=== PATIENT | female | born 1960 | race Caucasian/White ===

== ENCOUNTER 2020-05-21 18:17 | Inpatient (IN) | payer MEDICAID ==
[~2020-05-21] VITALS: Ht 167.6 cm; Wt 127.1 kg
[2020-05-21 20:07] VITALS: BP 125/74
[2020-05-21] MEDS: ENOXAPARIN 40 MG/0.4 ML SQ SCH (22:30)
[2020-05-21] MEDS ORDERED: ENALAPRILAT 1.25 MG/ML, 2ML IVPush PRN (22:30)
[2020-05-21] MEDS ORDERED: ACETAMINOPHEN 325 MG TABLET PO PRN (22:30)
[2020-05-21] MEDS ORDERED: MELATONIN 5 MG TABLET PO PRN (22:30)
[2020-05-21] MEDS ORDERED: ONDANSETRON ODT 4 MG PO PRN (22:30)
[2020-05-21] MEDS ORDERED: PLEASE ENTER HEIGHT MC SCH (23:00)
[2020-05-21] MEDS ORDERED: VANCOMYCIN PER PHARMACY MC PRN (23:00)
[2020-05-21] MEDS ORDERED: PLEASE ENTER ALLERGIES MC SCH (23:00)
[2020-05-21] MEDS ORDERED: LYSI100010 PO (23:36)
[2020-05-21] MEDS ORDERED: MONOLAURIN PO (23:37)
[2020-05-21] MEDS ORDERED: PHARMACOKINETIC MONITORING MC PRN (23:45)
[2020-05-22 00:07] VITALS: BP 114/72
[2020-05-22] MEDS ORDERED: VANCOMYCIN 1,250 MG in SODIUM CHLORIDE 0.9% 100 ML IV ONE (02:00)
[2020-05-22 05:32] LABS: BASOPHILS % (AUTO) 0 % (0-1); EOSINOPHILS % (AUTO) 3 % (1-7); LYMPHOCYTES % (AUTO) 21 % (22-44); MEAN CORPUSCULAR HEMOGLOBIN 31.2 pg (27.0-34.8); MEAN CORPUSCULAR HGB CONC 32.7 g/dL (32.4-35.8); MEAN PLATELET VOLUME 8.3 fL (7.4-10.4); MONOCYTES % (AUTO) 9 % (2-9); NEUTROPHILS % (AUTO) 67 % (42-75); PLATELET COUNT 218 x10^3/uL (130-400); RED BLOOD COUNT 3.58 x10^6/uL (3.82-5.3); RED CELL DISTRIBUTION WIDTH 13.6 % (9.6-15.2)
[2020-05-22 05:43] LABS: ANION GAP 5 mmol/L (5-15); CALCIUM 8.7 mg/dL (8.5-10.1); CHLORIDE 107 mmol/L (98-107); CREATININE 0.87 mg/dL (0.55-1.02)
[2020-05-22 05:53] LABS: MD NO
[2020-05-22 07:04] VITALS: BP 99/51
[2020-05-22 12:26] VITALS: BP 106/75
[2020-05-22] MEDS: VANCOMYCIN 1,800 MG in SODIUM CHLORIDE 0.9% 250 ML IV SCH (13:08)
[2020-05-22] MEDS: DOCUSATE 100 MG CAPSULE PO PRN (17:40)
[2020-05-22 19:20] VITALS: BP 118/78
[2020-05-22] MEDS: ENOXAPARIN 40 MG/0.4 ML SQ SCH (22:04)
[2020-05-23 00:02] VITALS: BP 132/82
[2020-05-23] MEDS: VANCOMYCIN 1,800 MG in SODIUM CHLORIDE 0.9% 250 ML IV SCH ×2 (00:36→14:21)
[2020-05-23 06:46] VITALS: BP 115/73
[2020-05-23 12:25] VITALS: BP 126/75
[2020-05-23] MEDS: CLOBETASOL PROPIONATE CRM 0.05%, 15GM TP SCH (13:32)
[2020-05-23] MEDS: CLINDAMYCIN 300 MG CAPSULE PO SCH ×2 (13:33→18:00)
[2020-05-23] MEDS: DOCUSATE 100 MG CAPSULE PO PRN (14:20)
[2020-05-23 20:44] VITALS: BP 128/74
[2020-05-23] MEDS ORDERED: POLYETHYLENE GLYCOL 17 GM PACKET ONE (21:20)
[2020-05-23] MEDS ORDERED: POLYETHYLENE GLYCOL 17 GM PACKET PO PRN (21:30)
[2020-05-23] MEDS: ENOXAPARIN 40 MG/0.4 ML SQ SCH (22:12)
[2020-05-24] MEDS: CLINDAMYCIN 300 MG CAPSULE PO SCH ×4 (00:10→17:49)
[2020-05-24 01:10] VITALS: BP 129/69
[2020-05-24] MEDS: VANCOMYCIN 1,800 MG in SODIUM CHLORIDE 0.9% 250 ML IV SCH ×2 (01:42→12:14)
[2020-05-24 05:46] LABS: CHLORIDE 108 mmol/L (98-107)
[2020-05-24 05:51] LABS: ANION GAP 8 mmol/L (5-15); BASOPHILS % (AUTO) 1 % (0-1); CALCIUM 9.1 mg/dL (8.5-10.1); CREATININE 1.13 mg/dL (0.55-1.02); EOSINOPHILS % (AUTO) 7 % (1-7); LYMPHOCYTES % (AUTO) 22 % (22-44); MEAN CORPUSCULAR HEMOGLOBIN 31.4 pg (27.0-34.8); MEAN PLATELET VOLUME 8.7 fL (7.4-10.4); MONOCYTES % (AUTO) 11 % (2-9); NEUTROPHILS % (AUTO) 59 % (42-75); PLATELET COUNT 238 x10^3/uL (130-400); RED BLOOD COUNT 3.75 x10^6/uL (3.82-5.3); RED CELL DISTRIBUTION WIDTH 13.8 % (9.6-15.2)
[2020-05-24 06:33] LABS: MD NO
[2020-05-24 08:08] VITALS: BP 136/82
[2020-05-24] MEDS: CLOBETASOL PROPIONATE CRM 0.05%, 15GM TP SCH (10:03)
[2020-05-24 12:01] VITALS: BP 138/80
[2020-05-24] MEDS ORDERED: SODIUM CHLORIDE 0.9%, 500ML IVBOLUS ONE (13:00)
[2020-05-24 13:37] LABS: ANION GAP 7 mmol/L (5-15); CALCIUM 9.3 mg/dL (8.5-10.1); CHLORIDE 108 mmol/L (98-107)
[2020-05-24 13:38] LABS: CREATININE 0.93 mg/dL (0.55-1.02)
[2020-05-24] MEDS ORDERED: CLOB15CR19 TP (14:30)
[2020-05-24] MEDS ORDERED: FAMO10TA77 PO (14:30)
[2020-05-24] MEDS ORDERED: CLIN300C8 PO (14:30)
== END 2020-05-24 18:23 | disposition home or self-care (01) | DRG 383 ==
LOC: 4WST 19:29
PROVIDERS: ADMIT Family Medicine; ATTEND Family Medicine
DX: L03.115 Cellulitis of right lower limb (principal); E66.01 Morbid (severe) obesity due to excess calories; G47.33 Obstructive sleep apnea (adult) (pediatric); I83.019 Varicose veins of right lower extremity with ulcer of unspecified site; I83.029 Varicose veins of left lower extremity with ulcer of unspecified site; L97.919 Non-pressure chronic ulcer of unspecified part of right lower leg with unspecified severity; L97.929 Non-pressure chronic ulcer of unspecified part of left lower leg with unspecified severity; Z68.42 Body mass index [BMI] 45.0-49.9, adult; Q73.1 Phocomelia, unspecified limb(s); Z59.0 Homelessness; Z86.14 Personal history of Methicillin resistant Staphylococcus aureus infection; Z90.49 Acquired absence of other specified parts of digestive tract; Z88.5 Allergy status to narcotic agent
CPT/HCPCS: 36415; 80048; 80202; 85025; 93306; G0378; J1650; J3370; Q0162; J7040; J7050

== ENCOUNTER 2020-05-25 10:22 | Emergency (ER) | payer MEDICAID ==
[~2020-05-25] VITALS: Ht 167.6 cm; Wt 123.1 kg
[~2020-05-25 10:22] MED LIST: CLIN300C8 PO; CLOB15CR19 TP; FAMO10TA77 PO; LYSI100010 PO; MONOLAURIN PO
[2020-05-25 10:25] VITALS: BP 169/92
--- NOTE | 2020-05-25 16:14 | NUR ---
Patient given discharge instructions and they have confirmed that they understand the instructions. Patient ambulatory with steady gait.
== END 2020-05-25 16:15 | disposition home or self-care (01) ==
LOC: ED 15:55
DX: A49.02 Methicillin resistant Staphylococcus aureus infection, unspecified site (principal); M79.661 Pain in right lower leg; Z76.0 Encounter for issue of repeat prescription
CPT/HCPCS: 99281

== ENCOUNTER 2020-08-28 00:37 | Inpatient (IN) | payer MEDICAID ==
[~2020-08-28] VITALS: Ht 167.6 cm; Wt 128.5 kg
[~2020-08-28 00:37] MED LIST changes: -CLIN300C8 PO; +CLIN300C9 PO
[2020-08-28 01:25] LABS: BASOPHILS % (AUTO) 1 % (0-1); EOSINOPHILS % (AUTO) 6 % (1-7); LYMPHOCYTES % (AUTO) 19 % (22-44); MEAN CORPUSCULAR HEMOGLOBIN 31.1 pg (27.0-34.8); MEAN CORPUSCULAR HGB CONC 33.2 g/dL (32.4-35.8); MEAN PLATELET VOLUME 8.5 fL (7.4-10.4); MONOCYTES % (AUTO) 11 % (2-9); NEUTROPHILS % (AUTO) 64 % (42-75); PLATELET COUNT 258 x10^3/uL (130-400); RED BLOOD COUNT 3.94 x10^6/uL (3.82-5.3); RED CELL DISTRIBUTION WIDTH 14.1 % (9.6-15.2)
[2020-08-28 01:35] LABS: MD NO
[2020-08-28 01:37] LABS: ANION GAP 5 mmol/L (5-15); CALCIUM 9.2 mg/dL (8.5-10.1); CHLORIDE 108 mmol/L (98-107); CREATININE 1.06 mg/dL (0.55-1.02)
[2020-08-28] MEDS ORDERED: VANCOMYCIN PER PHARMACY MC ONE (03:00)
[2020-08-28] MEDS ORDERED: SODIUM CHLORIDE FLUSH 10ML SYR IVF ONE (03:00)
[2020-08-28] MEDS ORDERED: CEFAZOLIN PMX 1GM/50ML 50 ML IVPB ONE (03:00)
[2020-08-28] MEDS ORDERED: CEFTRIAXONE PMX 1GM/50ML 0 ML ONE (03:07)
[2020-08-28] MEDS ORDERED: CEFAZOLIN PMX 1GM/50ML 50 ML ONE (03:11)
[2020-08-28] MEDS ORDERED: VANCOMYCIN 2,200 MG in SODIUM CHLORIDE 0.9% 500 ML IV ONE (05:00)
[2020-08-28] MEDS ORDERED: PHARMACOKINETIC CONSULTATION MC ONE ×2 (05:00→10:00)
--- NOTE | 2020-08-28 05:06 | NUR ---
Vanco infusing. Pt with stable vs, A&O, warm blanket and bear warmer given for patient comfort. Pt tolerating snack that was provided. Pt with no needs at this time.
[2020-08-28] MEDS ORDERED: ONDANSETRON ODT 4 MG PO PRN (07:00)
[2020-08-28] MEDS ORDERED: VANCOMYCIN PER PHARMACY MC PRN (07:00)
[2020-08-28] MEDS ORDERED: BACLOFEN 10 MG TABLET PO PRN (07:00)
[2020-08-28] MEDS ORDERED: BUTALB/APAP/CAFFEINE 50MG/325MG/40MG PO PRN (07:00)
[2020-08-28] MEDS ORDERED: ONDANSETRON 2MG/ML, 2ML IVPush PRN (07:00)
[2020-08-28] MEDS ORDERED: GUAIFENESIN/DM 200-20MG, 10ML UDC PO PRN (07:00)
--- NOTE | 2020-08-28 07:02 | NUR ---
REPORT OF PT FROM ANDREW PERDUE AND ASSUMING CARE OF PT AT THIS TIME.
--- NOTE | 2020-08-28 07:16 | NUR ---
ATTEMPTED REPORT. PER FLOOR, RN IS STILL GETTTING REPORT AND WILL CALL BACK.
[2020-08-28 08:33] VITALS: BP 137/77
[2020-08-28] MEDS: SENNA/DOCUSATE TABLET PO SCH (09:07)
[2020-08-28] MEDS: ENOXAPARIN 40 MG/0.4 ML SQ SCH (09:07)
[2020-08-28] MEDS ORDERED: PHARMACOKINETIC MONITORING MC PRN (10:00)
[2020-08-28] MEDS: BUTALB/APAP/CAFFEINE 50MG/325MG/40MG PO PRN ×2 (10:50→20:10)
[2020-08-28 10:56] VITALS: BP 145/82
[2020-08-28 12:45] LABS: FREE T4 (FREE THYROXINE) 1.09 ng/dL (0.76-1.46)
[2020-08-28] MEDS: CEFAZOLIN PMX 1GM/50ML 50 ML IV SCH (15:00)
[2020-08-28 19:02] VITALS: BP 127/78
[2020-08-28] MEDS: MELATONIN 5 MG TABLET PO SCH (20:10)
[2020-08-29] MEDS: CEFAZOLIN PMX 1GM/50ML 50 ML IV SCH ×3 (02:54→21:57)
[2020-08-29 02:56] VITALS: BP 109/69
[2020-08-29] MEDS: BUTALB/APAP/CAFFEINE 50MG/325MG/40MG PO PRN (02:56)
[2020-08-29] MEDS: VANCOMYCIN 1,700 MG in SODIUM CHLORIDE 0.9% 250 ML IV SCH (05:32)
[2020-08-29] MEDS: ENOXAPARIN 40 MG/0.4 ML SQ SCH (06:43)
[2020-08-29 06:50] LABS: BASOPHILS % (AUTO) 1 % (0-1); EOSINOPHILS % (AUTO) 2 % (1-7); LYMPHOCYTES % (AUTO) 20 % (22-44); MEAN CORPUSCULAR HGB CONC 33.5 g/dL (32.4-35.8); MEAN PLATELET VOLUME 8.4 fL (7.4-10.4); MONOCYTES % (AUTO) 12 % (2-9); NEUTROPHILS % (AUTO) 66 % (42-75); PLATELET COUNT 213 x10^3/uL (130-400); RED CELL DISTRIBUTION WIDTH 14.4 % (9.6-15.2)
[2020-08-29 06:55] LABS: MD NO
[2020-08-29 07:04] LABS: ANION GAP 6 mmol/L (5-15); CALCIUM 8.7 mg/dL (8.5-10.1); CHLORIDE 110 mmol/L (98-107)
[2020-08-29 07:05] LABS: CREATININE 0.95 mg/dL (0.55-1.02)
[2020-08-29 08:55] VITALS: BP 93/57
[2020-08-29] MEDS: SENNA/DOCUSATE TABLET PO SCH (09:00)
[2020-08-29] MEDS: THYROID 30 MG TABLET PO SCH (10:00)
[2020-08-29 14:09] VITALS: BP 120/69
[2020-08-29] MEDS ORDERED: MUPIROCIN OINT 2%, 1 GM APPL. TP SCH (16:00)
[2020-08-29] MEDS: MUPIROCIN OINT 2%, 22GM TP SCH ×2 (17:47→20:17)
[2020-08-29 19:33] VITALS: BP 108/62
[2020-08-29] MEDS: MELATONIN 5 MG TABLET PO SCH (20:17)
[2020-08-30 00:30] VITALS: BP 126/66
[2020-08-30] MEDS: VANCOMYCIN 1,700 MG in SODIUM CHLORIDE 0.9% 250 ML IV SCH (05:13)
[2020-08-30] MEDS: THYROID 30 MG TABLET PO SCH (05:23)
[2020-08-30 06:52] VITALS: BP 111/63
[2020-08-30] MEDS: CEFAZOLIN PMX 1GM/50ML 50 ML IV SCH ×3 (07:09→23:16)
[2020-08-30] MEDS: ENOXAPARIN 40 MG/0.4 ML SQ SCH (08:05)
[2020-08-30] MEDS: BUTALB/APAP/CAFFEINE 50MG/325MG/40MG PO PRN (08:10)
[2020-08-30] MEDS: SENNA/DOCUSATE TABLET PO SCH (08:11)
[2020-08-30] MEDS: MUPIROCIN OINT 2%, 22GM TP SCH ×3 (08:47→20:11)
[2020-08-30] MEDS: FUROSEMIDE 20 MG TABLET PO SCH (08:55)
[2020-08-30 13:09] VITALS: BP 104/65
[2020-08-30] MEDS ORDERED: VANCOMYCIN 1,800 MG in SODIUM CHLORIDE 0.9% 250 ML IV ONE (17:00)
[2020-08-30 19:24] VITALS: BP 125/81
[2020-08-30] MEDS: MELATONIN 5 MG TABLET PO SCH (20:11)
[2020-08-31 01:24] VITALS: BP 111/71
[2020-08-31] MEDS: THYROID 30 MG TABLET PO SCH (05:51)
[2020-08-31 06:44] VITALS: BP 123/60
[2020-08-31 06:57] LABS: ANION GAP 6 mmol/L (5-15); CALCIUM 8.9 mg/dL (8.5-10.1); CHLORIDE 107 mmol/L (98-107); CREATININE 0.97 mg/dL (0.55-1.02)
[2020-08-31] MEDS: ENOXAPARIN 40 MG/0.4 ML SQ SCH (07:00)
[2020-08-31] MEDS: CEFAZOLIN PMX 1GM/50ML 50 ML IV SCH ×3 (07:14→22:46)
[2020-08-31] MEDS ORDERED: POLYETHYLENE GLYCOL 17 GM PACKET PO PRN (08:00)
[2020-08-31] MEDS: MUPIROCIN OINT 2%, 22GM TP SCH ×3 (09:43→20:48)
[2020-08-31] MEDS: SENNA/DOCUSATE TABLET PO SCH (09:43)
[2020-08-31] MEDS: FUROSEMIDE 20 MG TABLET PO SCH (09:43)
[2020-08-31] MEDS: VANCOMYCIN 1,800 MG in SODIUM CHLORIDE 0.9% 250 ML IV SCH (11:06)
[2020-08-31 12:06] VITALS: BP 123/79
[2020-08-31 19:00] VITALS: BP 109/69
[2020-08-31] MEDS: MELATONIN 5 MG TABLET PO SCH (20:47)
[2020-09-01 01:15] VITALS: BP 121/79
[2020-09-01 05:15] LABS: ANION GAP 6 mmol/L (5-15); CALCIUM 9.2 mg/dL (8.5-10.1); CHLORIDE 104 mmol/L (98-107)
[2020-09-01 05:17] LABS: CREATININE 0.95 mg/dL (0.55-1.02)
[2020-09-01] MEDS: VANCOMYCIN 1,800 MG in SODIUM CHLORIDE 0.9% 250 ML IV SCH ×2 (05:48→23:04)
[2020-09-01] MEDS: THYROID 30 MG TABLET PO SCH (05:50)
[2020-09-01] MEDS: ENOXAPARIN 40 MG/0.4 ML SQ SCH (07:00)
[2020-09-01 07:01] VITALS: BP 112/72
[2020-09-01] MEDS: SENNA/DOCUSATE TABLET PO SCH ×2 (07:47→07:53)
[2020-09-01] MEDS: CEFAZOLIN PMX 1GM/50ML 50 ML IV SCH ×2 (07:47→16:05)
[2020-09-01] MEDS: MUPIROCIN OINT 2%, 22GM TP SCH ×3 (07:48→20:49)
[2020-09-01] MEDS: FUROSEMIDE 20 MG TABLET PO SCH (07:48)
[2020-09-01] MEDS ORDERED: LINE600T15 PO (10:42)
[2020-09-01] MEDS: BUTALB/APAP/CAFFEINE 50MG/325MG/40MG PO PRN (11:31)
[2020-09-01 12:31] VITALS: BP 123/68
[2020-09-01 19:55] VITALS: BP 107/69
[2020-09-01] MEDS: MELATONIN 5 MG TABLET PO SCH (20:36)
[2020-09-02] MEDS: CEFAZOLIN PMX 1GM/50ML 50 ML IV SCH ×2 (00:46→08:11)
[2020-09-02 01:47] VITALS: BP 111/73
[2020-09-02 05:58] LABS: ANION GAP 5 mmol/L (5-15); CALCIUM 9.1 mg/dL (8.5-10.1); CHLORIDE 104 mmol/L (98-107); CREATININE 0.95 mg/dL (0.55-1.02)
[2020-09-02] MEDS: THYROID 30 MG TABLET PO SCH (06:00)
[2020-09-02] MEDS: ENOXAPARIN 40 MG/0.4 ML SQ SCH (06:12)
[2020-09-02 06:15] VITALS: BP 100/61
[2020-09-02] MEDS ORDERED: MUPI22OI2 TP (08:00)
[2020-09-02] MEDS ORDERED: FURO20TA3 PO (08:00)
[2020-09-02] MEDS: MUPIROCIN OINT 2%, 22GM TP SCH (08:12)
[2020-09-02] MEDS: SENNA/DOCUSATE TABLET PO SCH (08:12)
[2020-09-02] MEDS: FUROSEMIDE 20 MG TABLET PO SCH (08:12)
== END 2020-09-02 15:51 | disposition home or self-care (01) | DRG 383 ==
LOC: ED 02:17 → EDIP 06:29 → 4NE 08:01 → 4EST 10:40 → 4WST 08-29 23:45
PROVIDERS: ADMIT Hospitalist; ATTEND Family Medicine
DX: L03.115 Cellulitis of right lower limb (principal); E03.9 Hypothyroidism, unspecified; E66.01 Morbid (severe) obesity due to excess calories; Z68.42 Body mass index [BMI] 45.0-49.9, adult; I11.0 Hypertensive heart disease with heart failure; I50.9 Heart failure, unspecified; I83.009 Varicose veins of unspecified lower extremity with ulcer of unspecified site; I87.8 Other specified disorders of veins; L03.116 Cellulitis of left lower limb; G47.30 Sleep apnea, unspecified; I83.019 Varicose veins of right lower extremity with ulcer of unspecified site; I83.029 Varicose veins of left lower extremity with ulcer of unspecified site; L97.929 Non-pressure chronic ulcer of unspecified part of left lower leg with unspecified severity; Z20.822 Contact with and (suspected) exposure to COVID-19; L97.919 Non-pressure chronic ulcer of unspecified part of right lower leg with unspecified severity; Z59.0 Homelessness; Z86.14 Personal history of Methicillin resistant Staphylococcus aureus infection; Z91.19 Patient's noncompliance with other medical treatment and regimen; Z90.49 Acquired absence of other specified parts of digestive tract; Z88.5 Allergy status to narcotic agent
CPT/HCPCS: 36415; 80048; 80202; 83735; 84439; 84443; 84481; 85025; 87040; 87070; 87077; 87147; 87186; 87205; 93970; 96374; 96375; 99285; G0378; J0690; J1650; J3370; J7040; J7050; U0003

== ENCOUNTER 2020-09-04 13:42 | Outpatient (CLI) | payer MEDICAID ==
[~2020-09-04 13:42] MED LIST changes: +FURO20TA3 PO; +LINE600T15 PO; +MUPI22OI2 TP
[2020-09-05] MEDS ORDERED: MUPI22OI2 TP (14:47)
== END 2020-09-04 23:59 | disposition home or self-care (01) ==
LOC: WOUND 13:42
PROVIDERS: ATTEND Nurse Practitioner Family
DX: I87.331 Chronic venous hypertension (idiopathic) with ulcer and inflammation of right lower extremity (principal); L97.812 Non-pressure chronic ulcer of other part of right lower leg with fat layer exposed; E66.01 Morbid (severe) obesity due to excess calories; I11.0 Hypertensive heart disease with heart failure; I50.9 Heart failure, unspecified; G47.30 Sleep apnea, unspecified; E03.9 Hypothyroidism, unspecified; Z86.14 Personal history of Methicillin resistant Staphylococcus aureus infection; Z90.49 Acquired absence of other specified parts of digestive tract; Z88.5 Allergy status to narcotic agent; Z59.0 Homelessness; Z68.42 Body mass index [BMI] 45.0-49.9, adult
CPT/HCPCS: 97597; 99215

== ENCOUNTER 2020-11-03 06:20 | Inpatient (IN) | payer MEDICAID ==
[~2020-11-03] VITALS: Ht 167.6 cm; Wt 140.3 kg
--- NOTE | 2020-11-03 06:49 | NUR ---
PT PRESENT TO ED THIS MORNING DUE TO MRSA WOUNDS ON LOWER EXTREMITIES BILATERALLY. PT IS IRRITATED UPON ARRIVAL TO THIS RNS ROOMS COMPLAINING "THE WOUND CARE JAYDEN THINKS HE COULD JUST WRAP THIS AND THERES MRSA EVERYWHERE". PT SWEAT PANTS PEELED OFF OF LEGS, THEY ARE PARTIALLY CRUSTED ON, PT STATES THEY HAVE ONLY BEEN THERE FOR TWO DAYS. PT IS IRRITATED WITH RN STATING "GOD YOU WANT ME TO DO SO MUCH, I NEED STABILITY" RN EXPLAINED THAT WE NEED THESE THINGS TO BE ABLE TO HELP HER. PT PLACED ON SPO2/BP MONITORING REPORT TO STEPAN MORALES
--- NOTE | 2020-11-03 07:05 | NUR ---
THIS RN RECEIVED BEDSIDE REPORT FROM [facility] RN, JACQUELYN PAK NADN, ATTACHED TO MONITORS SITTING UP IN BED. PROVIDER AT BEDSIDE FOR EVALUATION.
--- NOTE | 2020-11-03 07:07 | NUR ---
PT STATES TO THIS RN IN ORDER TO CARE FOR HERSELF AND HER WOUNDS "WE NEED TO GIVE HER A PLACE TO LIVE" THIS RN STATED SHE WILL FIND HER RESOURSES.
--- NOTE | 2020-11-03 07:10 | NUR ---
BEDSIDE REPORT TO STEPAN MORALES, PT CARE TRANSFERRED AT THIS TIME.
[2020-11-03 08:02] LABS: BASOPHILS % (AUTO) 1 % (0-1); EOSINOPHILS % (AUTO) 5 % (1-7); LYMPHOCYTES % (AUTO) 18 % (22-44); MEAN CORPUSCULAR HEMOGLOBIN 31.2 pg (27.0-34.8); MEAN CORPUSCULAR HGB CONC 33.4 g/dL (32.4-35.8); MEAN PLATELET VOLUME 8.1 fL (7.4-10.4); MONOCYTES % (AUTO) 8 % (2-9); NEUTROPHILS % (AUTO) 69 % (42-75); PLATELET COUNT 234 x10^3/uL (130-400); RED BLOOD COUNT 3.82 x10^6/uL (3.82-5.3)
[2020-11-03 08:03] LABS: MD NO
[2020-11-03 08:05] LABS: ALANINE AMINOTRANSFERASE 42 U/L (12-78); ALBUMIN 3.5 g/dL (3.4-5.0); ANION GAP 6 mmol/L (5-15); CALCIUM 9.4 mg/dL (8.5-10.1); CHLORIDE 104 mmol/L (98-107); CREATININE 0.99 mg/dL (0.55-1.02)
[2020-11-03 08:09] LABS: ALKALINE PHOSPHATASE 75 U/L (45-117); BILIRUBIN,TOTAL 0.5 mg/dL (0.2-1.0); TOTAL PROTEIN 9.3 g/dL (6.4-8.2)
--- NOTE | 2020-11-03 08:12 | NUR ---
PT SITTING UP IN BED, VSBobo, KATN, PT STATING "YOU GUYS NEED TO FIX MY LEGS, I CAN'T SEE WOUND CARE OUTSIDE OF HERE, THEY ARN'T GIVING ME WHAT I WANT"
--- NOTE | 2020-11-03 08:36 | NUR ---
THIS RN REMOVED L. STOCKING TO EXPOSE L. CALF, L.CALF AND L.LEG NOT WEEPING. BILATERAL PEDAL PULSES +1. VSS NADN. AWAITING ORDERS.
[2020-11-03] MEDS ORDERED: VANCOMYCIN 2,500 MG in SODIUM CHLORIDE 0.9% 500 ML IV SCH (09:00)
[2020-11-03] MEDS ORDERED: VANCOMYCIN PER PHARMACY MC PRN ×2 (09:00→09:30)
[2020-11-03] MEDS ORDERED: VANCOMYCIN 2,500 MG in SODIUM CHLORIDE 0.9% 500 ML IV ONE (09:00)
--- NOTE | 2020-11-03 09:04 | NUR ---
report called to rena correa, working on obtaining PIV then pt to transfer.
[2020-11-03] MEDS ORDERED: hydrALAzine 20 MG/ML, 1ML IVPush PRN (09:30)
[2020-11-03] MEDS: CEFAZOLIN PMX 1GM/50ML 50 ML IV SCH ×2 (09:30→17:30)
[2020-11-03] MEDS ORDERED: PROMETHAZINE 25 MG/ML, 1ML IM PRN (09:30)
[2020-11-03] MEDS ORDERED: POLYETHYLENE GLYCOL 17 GM PACKET PO PRN (09:30)
[2020-11-03] MEDS ORDERED: ONDANSETRON ODT 4 MG PO PRN (09:30)
[2020-11-03] MEDS ORDERED: ACETAMINOPHEN 325 MG TABLET PO PRN (09:30)
[2020-11-03] MEDS ORDERED: BISACODYL 10 MG SUPP PR PRN (09:30)
[2020-11-03] MEDS ORDERED: MELATONIN 5 MG TABLET PO PRN (09:30)
[2020-11-03 09:37] LABS: C-REACTIVE PROTEIN, QUANT 1.6 mg/dL (0.02-0.49)
--- NOTE | 2020-11-03 10:00 | NUR ---
TASK RN NOTE: PIV PLACED TO LEFT UPPER ARM, CHEST. IV FLUSHES EASILY AND DRAWS BACK BLOOD, NO SX INFILTRATION. VANCO INITIATED AT 150ML/HR, TO BE INCREASED PT TOLERATES. THIS WAS DISCUSSED WITH PHARMACIST JAZMIN AND RECEIVING RN SUMAN. PHARMACY OK'D PT TO INFUSE VANCO AT 150ML/HR. NO SWELLING OR PAIN WITH INFUSION START. PT TO BE TRANSFERRED TO ONCOLOGY SHORTLY.
[2020-11-03 10:20] LABS: HCT (SEDRATE) 35.7 % (34.6-47.8)
[2020-11-03 10:21] VITALS: BP 143/99
[2020-11-03] MEDS ORDERED: PHARMACOKINETIC CONSULTATION MC ONE (10:30)
[2020-11-03] MEDS ORDERED: PHARMACOKINETIC MONITORING MC PRN (10:30)
[2020-11-03] MEDS: HYDROcodone/APAP 5/325 TABLET PO PRN (10:55)
[2020-11-03] MEDS: ENOXAPARIN 40 MG/0.4 ML SQ SCH (14:02)
[2020-11-03] MEDS: FUROSEMIDE 20 MG/2 ML IV SCH (14:03)
[2020-11-03 15:36] VITALS: BP 123/76
[2020-11-03 18:58] VITALS: BP 106/66
[2020-11-04 00:22] VITALS: BP 115/66
[2020-11-04] MEDS: CEFAZOLIN PMX 1GM/50ML 50 ML IV SCH ×2 (01:33→09:37)
[2020-11-04 05:12] LABS: BASOPHILS % (AUTO) 0 % (0-1); EOSINOPHILS % (AUTO) 2 % (1-7); LYMPHOCYTES % (AUTO) 16 % (22-44); MEAN CORPUSCULAR HEMOGLOBIN 31.5 pg (27.0-34.8); MEAN CORPUSCULAR HGB CONC 33.8 g/dL (32.4-35.8); MEAN PLATELET VOLUME 8.1 fL (7.4-10.4); MONOCYTES % (AUTO) 10 % (2-9); NEUTROPHILS % (AUTO) 72 % (42-75); PLATELET COUNT 211 x10^3/uL (130-400); RED BLOOD COUNT 3.64 x10^6/uL (3.82-5.3)
[2020-11-04 05:20] LABS: ALBUMIN 2.7 g/dL (3.4-5.0); ANION GAP 6 mmol/L (5-15); CHLORIDE 104 mmol/L (98-107)
[2020-11-04 05:28] LABS: ALANINE AMINOTRANSFERASE 32 U/L (12-78); ALKALINE PHOSPHATASE 60 U/L (45-117); BILIRUBIN,TOTAL 0.7 mg/dL (0.2-1.0); CALCIUM 8.7 mg/dL (8.5-10.1); CHOL/HDL RATIO 3.1; CHOLESTEROL, TOTAL 156 mg/dL (140-239); CREATININE 1.03 mg/dL (0.55-1.02); HDL CHOL % 33 % (28-40); HDL CHOLESTEROL (DIRECT) 51 mg/dL (40-60); LDL CHOLESTEROL,CALCULATED 92 mg/dL (54-169); LDL/HDL RATIO 1.8 (0.5-3.0); MD NO; TOTAL PROTEIN 7.9 g/dL (6.4-8.2); TRIGLYCERIDES 67 mg/dL (50-200); VLDL CHOLESTEROL 13 mg/dL (0-25)
[2020-11-04] MEDS: HYDROcodone/APAP 5/325 TABLET PO PRN (05:37)
[2020-11-04 06:55] VITALS: BP 114/72
[2020-11-04] MEDS ORDERED: FAMOTIDINE 10 MG TAB PO SCH (09:00)
[2020-11-04] MEDS ORDERED: LEVOTHYROXINE 100 MCG INJ IVPush SCH (09:00)
[2020-11-04] MEDS ORDERED: VANCOMYCIN 1,700 MG in SODIUM CHLORIDE 0.9% 250 ML IV SCH (09:30)
[2020-11-04] MEDS: FUROSEMIDE 20 MG/2 ML IV SCH (09:38)
[2020-11-04] MEDS: ENOXAPARIN 40 MG/0.4 ML SQ SCH (09:45)
[2020-11-04] MEDS ORDERED: ENOXAPARIN 30 MG/0.3 ML SQ SCH (20:00)
== END 2020-11-04 11:05 | disposition left against medical advice (07) | DRG 383 ==
LOC: ED 07:01 → EDIP 08:34 → SUATTDRO 08:57 → 4NW 10:12
PROVIDERS: ADMIT Hospitalist; ATTEND Hospitalist
DX: L03.115 Cellulitis of right lower limb (principal); I50.9 Heart failure, unspecified; L97.819 Non-pressure chronic ulcer of other part of right lower leg with unspecified severity; L97.829 Non-pressure chronic ulcer of other part of left lower leg with unspecified severity; I87.2 Venous insufficiency (chronic) (peripheral); Z53.29 Procedure and treatment not carried out because of patient's decision for other reasons; I11.0 Hypertensive heart disease with heart failure; L03.116 Cellulitis of left lower limb; E03.9 Hypothyroidism, unspecified; E66.01 Morbid (severe) obesity due to excess calories; Z68.42 Body mass index [BMI] 45.0-49.9, adult; Z91.19 Patient's noncompliance with other medical treatment and regimen; Z59.0 Homelessness; Z90.49 Acquired absence of other specified parts of digestive tract; Z88.5 Allergy status to narcotic agent; Z88.7 Allergy status to serum and vaccine
CPT/HCPCS: 36415; 71045; 80053; 80061; 83036; 83735; 83880; 84100; 84443; 85025; 85651; 86140; 87040; 87070; 87077; 87186; 87205; 93005; 96374; C8929; G0378; J0690; J1650; J3370; J1940; J7040

== ENCOUNTER 2020-11-27 23:15 | Emergency (ER) | payer MEDICAID ==
[~2020-11-27] VITALS: Ht 167.6 cm; Wt 85.0 kg
--- NOTE | 2020-11-27 23:36 | NUR ---
PT STATES HAVING BILATER LOWER EX PAIN FROM CHRONIC WOUND THATIS POS FOR MRSA. PT HAD WOUND CARE DONE THIS MORNING FROM ADDIE GARCIA BUT BELIVES THAT IT IS TOO TIGHT AND WANTS WOUND CARE DONE AND TO TALK WITH "KASSIE" WHO WORKS FOR W[facility] CARE [facility].
[2020-11-28] MEDS ORDERED: KETOROLAC 30 MG/1 ML IM ONE
[2020-11-28] MEDS ORDERED: KETOROLAC 30 MG/1 ML ONE (00:01)
[2020-11-28 00:18] LABS: BASOPHILS % (AUTO) 1 % (0-1); EOSINOPHILS % (AUTO) 3 % (1-7); LYMPHOCYTES % (AUTO) 19 % (22-44); MEAN CORPUSCULAR HEMOGLOBIN 31.3 pg (27.0-34.8); MEAN CORPUSCULAR HGB CONC 33.5 g/dL (32.4-35.8); MEAN PLATELET VOLUME 8.2 fL (7.4-10.4); MONOCYTES % (AUTO) 10 % (2-9); NEUTROPHILS % (AUTO) 67 % (42-75); PLATELET COUNT 215 x10^3/uL (130-400); RED BLOOD COUNT 3.55 x10^6/uL (3.82-5.3); RED CELL DISTRIBUTION WIDTH 14.2 % (9.6-15.2)
[2020-11-28 00:19] LABS: MD NO
[2020-11-28 00:29] LABS: ALANINE AMINOTRANSFERASE 27 U/L (12-78); ALBUMIN 2.9 g/dL (3.4-5.0); ANION GAP 8 mmol/L (5-15); CALCIUM 8.6 mg/dL (8.5-10.1); CHLORIDE 108 mmol/L (98-107); CREATININE 1.07 mg/dL (0.55-1.02)
[2020-11-28 00:33] LABS: ALKALINE PHOSPHATASE 72 U/L (45-117); BILIRUBIN,TOTAL 0.4 mg/dL (0.2-1.0); TOTAL PROTEIN 8.1 g/dL (6.4-8.2)
--- NOTE | 2020-11-28 00:50 | NUR ---
ULTRASOUND AT BEDSIDE
[2020-11-28 01:48] VITALS: BP 110/52
== END 2020-11-28 03:07 | disposition home or self-care (01) ==
LOC: ED 23:45
DX: I87.2 Venous insufficiency (chronic) (peripheral) (principal); I50.9 Heart failure, unspecified; E66.01 Morbid (severe) obesity due to excess calories; Z88.8 Allergy status to other drugs, medicaments and biological substances; Z68.30 Body mass index [BMI] 30.0-30.9, adult; Z90.89 Acquired absence of other organs; Z79.899 Other long term (current) drug therapy
CPT/HCPCS: 36415; 80053; 83880; 85025; 93970; 96372; 99284; J1885

== ENCOUNTER 2020-11-29 17:35 | Emergency (ER) | payer MEDICAID ==
[~2020-11-29] VITALS: Ht 165.1 cm; Wt 128.3 kg
[2020-11-29 18:19] LABS: BASOPHILS % (AUTO) 1 % (0-1); EOSINOPHILS % (AUTO) 5 % (1-7); LYMPHOCYTES % (AUTO) 16 % (22-44); MEAN CORPUSCULAR HEMOGLOBIN 30.7 pg (27.0-34.8); MEAN CORPUSCULAR HGB CONC 33.1 g/dL (32.4-35.8); MEAN PLATELET VOLUME 8.2 fL (7.4-10.4); MONOCYTES % (AUTO) 8 % (2-9); NEUTROPHILS % (AUTO) 71 % (42-75); PLATELET COUNT 241 x10^3/uL (130-400); RED BLOOD COUNT 3.83 x10^6/uL (3.82-5.3); RED CELL DISTRIBUTION WIDTH 14.1 % (9.6-15.2)
[2020-11-29 18:20] LABS: MD NO
[2020-11-29 18:27] LABS: ANION GAP 7 mmol/L (5-15); CALCIUM 9.2 mg/dL (8.5-10.1); CHLORIDE 107 mmol/L (98-107); CREATININE 1.19 mg/dL (0.55-1.02)
--- NOTE | 2020-11-29 18:39 | NUR ---
SQUAD BOSS: PT TO ROOM FROM LOBBY.
[2020-11-29] MEDS ORDERED: SODIUM CHLORIDE FLUSH 10ML SYR IVF ONE (19:30)
--- NOTE | 2020-11-29 19:40 | NUR ---
ERP IN CONTACT WITH SW FOR HELP WITH PTS SITUATION REGARDING SUPPLIES
[2020-11-29 20:29] VITALS: BP 149/71
--- NOTE | 2020-11-29 20:32 | NUR ---
Pt wounds to bilat legs dressed per pts request/demand, pt not happy with any of the care and extra efforts this nurse went through. Extra supplies given to pt for home dressing changes.
== END 2020-11-29 21:19 | disposition home or self-care (01) ==
LOC: ED 18:54
DX: M25.571 Pain in right ankle and joints of right foot (principal); M25.572 Pain in left ankle and joints of left foot; E66.01 Morbid (severe) obesity due to excess calories; Z68.42 Body mass index [BMI] 45.0-49.9, adult; Z90.89 Acquired absence of other organs
CPT/HCPCS: 36415; 80048; 85025; 99283; 99285

== ENCOUNTER 2020-12-10 13:29 | Outpatient (CLI) | payer MEDICAID | END 2020-12-12 23:59 | disposition home or self-care (01) | LOC: WOUND 13:29 | PROVIDERS: ATTEND Internal Medicine | DX: I87.312 Chronic venous hypertension (idiopathic) with ulcer of left lower extremity (principal); L97.822 Non-pressure chronic ulcer of other part of left lower leg with fat layer exposed; L97.222 Non-pressure chronic ulcer of left calf with fat layer exposed; I89.0 Lymphedema, not elsewhere classified; L03.116 Cellulitis of left lower limb; L03.115 Cellulitis of right lower limb; E66.01 Morbid (severe) obesity due to excess calories; I11.0 Hypertensive heart disease with heart failure; I50.9 Heart failure, unspecified; G47.30 Sleep apnea, unspecified; E03.9 Hypothyroidism, unspecified; Z86.14 Personal history of Methicillin resistant Staphylococcus aureus infection; Z90.49 Acquired absence of other specified parts of digestive tract; Z88.5 Allergy status to narcotic agent; Z88.7 Allergy status to serum and vaccine; Z88.8 Allergy status to other drugs, medicaments and biological substances; Z59.0 Homelessness; Z79.899 Other long term (current) drug therapy; Z68.30 Body mass index [BMI] 30.0-30.9, adult | CPT/HCPCS: 97597; 97598; 99215 ==

== ENCOUNTER → 2020-12-17 | Outpatient (CLI) | payer MEDICAID | END | disposition home or self-care (01) | LOC: WOUND 13:29 | PROVIDERS: ATTEND Internal Medicine | DX: I87.312 Chronic venous hypertension (idiopathic) with ulcer of left lower extremity (principal); L97.822 Non-pressure chronic ulcer of other part of left lower leg with fat layer exposed; L97.222 Non-pressure chronic ulcer of left calf with fat layer exposed; I89.0 Lymphedema, not elsewhere classified; L03.116 Cellulitis of left lower limb; L03.115 Cellulitis of right lower limb; E66.01 Morbid (severe) obesity due to excess calories; I11.0 Hypertensive heart disease with heart failure; I50.9 Heart failure, unspecified; G47.30 Sleep apnea, unspecified; E03.9 Hypothyroidism, unspecified; Z86.14 Personal history of Methicillin resistant Staphylococcus aureus infection; Z90.49 Acquired absence of other specified parts of digestive tract; Z88.5 Allergy status to narcotic agent; Z88.7 Allergy status to serum and vaccine; Z88.8 Allergy status to other drugs, medicaments and biological substances; Z59.0 Homelessness; Z79.899 Other long term (current) drug therapy; Z68.30 Body mass index [BMI] 30.0-30.9, adult | CPT/HCPCS: 97597; 97598 ==